=== PATIENT | male | born 1945 | race Caucasian/White ===

== ENCOUNTER 2016-03-25 12:29 | Inpatient (IN) ==
[2016-03-23 14:28] LABS: Basophils # (Auto) 0.1 K/mcL (0.0-0.3); Basophils % (Auto) 0.9 % (0.0-2.0); Eosinophils # (Auto) 0.1 K/mcL (0.0-0.7); Eosinophils % (Auto) 1.8 % (0.0-7.0); Granulocytes % (Auto) 71.1 % (38.0-78.0); Lymphocytes # (Auto) 1.5 K/mcL (1.5-4.8); Lymphocytes % (Auto) 19.1 % (15.5-49.0); Mean Cell Volume 96.5 fL (80.0-100.0); Mean Corpuscular HGB Conc 34.3 g/dL (31.0-36.0); Mean Corpuscular Hemoglobin 33.1 pg (26.0-34.0); Monocytes # (Auto) 0.6 K/mcL (0.1-0.9); Monocytes % (Auto) 7.1 % (1.0-9.0); Platelet Count 276 K/mcL (140-440); RBC 4.18 M/mcL (4.50-5.90); Red Cell Distribution Width 13.2 % (11.5-14.5)
[2016-03-23 14:53] LABS: Appearance,Urine CLEAR; Bilirubin,Urine NEG (NEG); Color,Urine STRAW; Glucose,Urine (UA) NEGATIVE (NEG); Leukocyte Esterase,Urine NEG /uL (NEG); Nitrate,Urine NEG (NEG); Protein,Urine NEG (NEG); Specific Gravity,Urine 1.009 (1.000-1.035); Urine Blood NEG mg/dL (<0.03); Urobilinogen,Urine NEG (NEG)
[2016-03-23 14:54] LABS: Blood Urea Nitrogen 27 mg/dl (8-23)
[~2016-03-25 12:29] MED LIST: CELECOXIB 200 MG CAPSULE PO SCH; KETOROLAC 30 MG, ROPIVACAINE HCL/PF 49.5 ML, EPINEPHrine 0.5 MG, 0.9 % SODIUM CHLORIDE ... IJ SCH; PREGABALIN 150 MG CAPSULE PO SCH; ceFAZolin 1 GM VIAL IV SCH; oxyCODONE 10 MG TAB.ER.12H PO SCH
[2016-03-25] MEDS ORDERED: DEXAMETHASONE 10 MG/ML VIAL IV ONE (14:40)
[2016-03-25] MEDS ORDERED: MIDAZOLAM 5 MG/5 ML VIAL IV ONE (14:40)
[2016-03-25] MEDS ORDERED: PROPOFOL 200 MG/20 ML VIAL IV ONE (14:40)
[2016-03-25] MEDS ORDERED: LIDOCAINE HCL/PF 100 MG/5 ML SYRINGE IV ONE (14:40)
[2016-03-25] MEDS ORDERED: ROPIVACAINE HCL/PF 30 ML VIAL IJ ONE (14:40)
[2016-03-25] MEDS ORDERED: PHENYLEPHRINE 10 MG/ML VIAL IV ONE (14:40)
[2016-03-25] MEDS ORDERED: ePHEDrine 50 MG/ML AMPUL IV ONE (14:40)
[2016-03-25] MEDS ORDERED: ONDANSETRON 4 MG/2 ML VIAL IV ONE (14:40)
[2016-03-25] MEDS ORDERED: GENTAMICIN SULFATE 800 MG/20 ML VIAL IR ONE (15:40)
[2016-03-25] MEDS ORDERED: HYDROmorphone 2 MG/ML SYRINGE IV PRN ×2 (16:18→16:47)
[2016-03-25] MEDS ORDERED: IPRATROPIUM/ALBUTEROL 3 ML AMPUL.NEB NEB PRN (16:18)
[2016-03-25] MEDS ORDERED: FLUMAZENIL 0.1 MG/ML ML IV PRN (16:18)
[2016-03-25] MEDS ORDERED: ePHEDrine 50 MG/ML AMPUL IV PRN (16:18)
[2016-03-25] MEDS ORDERED: MEPERIDINE 25 MG/ML SYRINGE IV PRN (16:18)
[2016-03-25] MEDS ORDERED: ONDANSETRON 4 MG/2 ML VIAL IV PRN ×2 (16:18→16:47)
[2016-03-25] MEDS ORDERED: BENZOCAINE/MENTHOL 1 LOZENGE PO PRN ×2 (16:18→16:47)
[2016-03-25] MEDS ORDERED: NALOXONE HCL 0.4 MG/ML VIAL IV PRN (16:18)
[2016-03-25] MEDS ORDERED: diphenhydrAMINE 50 MG/ML VIAL IV PRN (16:18)
[2016-03-25] MEDS ORDERED: METHOCARBAMOL 1,000 MG/10 ML VIAL IV PRN (16:18)
[2016-03-25] MEDS ORDERED: fentaNYL 100 MCG/2 ML VIAL IV PRN (16:18)
[2016-03-25] MEDS ORDERED: METOPROLOL TARTRATE 5 MG/5 ML VIAL IV PRN (16:18)
[2016-03-25] MEDS ORDERED: ATROPINE SULFATE 0.4 MG/ML VIAL IV PRN (16:18)
[2016-03-25] MEDS ORDERED: LACTATED RINGERS 1,000 ML IV SCH (16:30)
--- NOTE | 2016-03-25 16:46 | Brief Operative Note ---
Date of procedure: 03/25/16 Pre-op diagnosis: left knee oa Post-op diagnosis: same Procedure: left total knee arthroplasty Grafts/Implants: Yes Anesthesia: spinal Complications: none Surgeon: Estevan Pichardo Press Tender Smoke Signal: Jeffery Ruth Estimated blood loss (cc): 150 Tourniquet Time (Minutes): 83 Specimens Removed/Pathology: none sent Condition: stable Disposition: PACU
[2016-03-25] MEDS ORDERED: POLYETHYLENE GLYCOL 3350 17 GM PACKET PO PRN (16:47)
[2016-03-25] MEDS ORDERED: BISACODYL 10 MG SUPP.RECT PR PRN (16:47)
[2016-03-25] MEDS ORDERED: TRANEXAMIC ACID 1,000 MG/10 ML VIAL IV ONE (16:47)
[2016-03-25] MEDS ORDERED: FLEETS ADULT ENEMA PR PRN (16:47)
[2016-03-25] MEDS ORDERED: MAGNESIUM HYDROXIDE 30 ML ORAL.SUSP PO PRN (16:47)
[2016-03-25] MEDS ORDERED: PROMETHAZINE 25 MG/ML VIAL IM PRN (16:47)
[2016-03-25] MEDS ORDERED: METHOCARBAMOL 750 MG TABLET PO PRN (16:47)
[2016-03-25] MEDS ORDERED: ONDANSETRON ODT 4 MG TABLET SL PRN (16:47)
--- NOTE | 2016-03-25 17:21 | Operative Note ---
DATE OF OPERATION: 03/25/2016 PREOPERATIVE DIAGNOSIS: Degenerative joint disease, left knee. POSTOPERATIVE DIAGNOSIS: Degenerative joint disease, left knee. PROCEDURE: Left total knee arthroplasty. SURGEON: Ilda Pichardo M.D. JAWBONE PULLER SURGEON: Jeffery Ruth PA-C. ANESTHESIA: Spinal with LMA assist. ESTIMATED BLOOD LOSS: 150 mL. COMPLICATIONS: None noted. SPECIMENS REMOVED: None. DRAINS: None. TOURNIQUET TIME: 1 hour and 23 minutes at 250 mmHg. IMPLANTS: DePuy CMW2 bone cement 20 grams x5; DePuy Attune femoral posterior stabilized size 8 left cemented; DePuy Attune tibial insert fixed bearing posterior stabilized size 8, 6 mm AOX; DePuy Attune tibial base fixed bearing size 7 cemented; DePuy Attune patella medialized dome 38 mm cemented AOX. INDICATIONS: The patient has had a long-standing history of worsening pain in the knee that has failed conservative treatment. Radiographs have confirmed advanced degenerative joint disease. After a long discussion about treatment options, the patient elected to proceed with a knee arthroplasty. The risks and benefits were discussed with the patient in detail including, but not limited to, the risks of anesthesia, problems with the heart or lungs related to anesthesia, infection, compromise or injury to the nerves and blood vessels, deep venous thrombosis, pulmonary embolism, pneumonia, continued pain after surgery, worsening pain or symptoms after surgery, swelling, loss of motion, instability, leg length discrepancy, and need for repeat surgery. DESCRIPTION OF PROCEDURE: The patient was seen in the pre-anesthesia waiting room where all questions were answered and the correct side and site were identified and marked. The patient was transferred to the operating room and administered the anesthetic and given pre-operative antibiotics. A time-out was then called. The extremity was prepped and draped, exsanguinated, and the tourniquet was inflated to 300 mmHg. A midline skin incision was then made with a standard medial parapatellar arthrotomy. Debridement of the menisci, ACL, and PCL was performed followed by balancing releases in the medial lateral plane. We then established intramedullary access to both the femur and tibia in a standard fashion. The femoral guide ale was initially placed with the distal femoral guide, pinned into place, and the distal femoral cut was performed and checked with a flat plate. We then turned our attention to the tibia. The intramedullary guide was placed with the proximal tibial cutting block. The block was appropriately positioned off the affected side, varus and valgus was checked with the extra-medullary guide, and the block was pinned into place. The proximal tibial cut was performed and the tibia was prepared for the tibial implant with appropriate rotation. The tibia, femur, and posterior compartment were debrided of osteophytes, loose bodies, and meniscal fragments We then used the gap balancing technique to balance extension with the first two cuts and good balancing was obtained with a 10 millimeter gap block. We turned our attention back to the femur and used the referencing block and implant to size appropriately. Using the gap balancing technique for the flexion space we set our rotation of the femur off the tibial cut. Anesthesia gave the patient 1 gram of Tranexamic Acid via an intravenous route. We placed the 4 in 1 cutting block and made anterior, posterior, and chamfer cuts. Box plasty cuts were then made in a standard fashion for the posterior stabilized prosthesis. We then completed osteophyte release and posterior capsule release from the posterior compartment. Trials were placed and we chose the polyethylene insert thickness that provided the best stability in all planes. With the trials in place, we did a measured resection for a resurfacing patella. We sized the patella and placed the patella trial and performed a lateral facetectomy with the saw and rongeur. Good tracking was obtained. We removed all trials, irrigated and dried all cut surfaces. We cemented the components into place including tibia, femur and patella. We placed a trial liner and held the knee in full extension with the patella compressed while the cement cured. We then removed all excess cement and placed the final polyethylene tibiofemoral component. Irrigation with 3 liters of antibiotic saline was then performed using jet-lavage. We let the tourniquet down and coagulated bleeding vessels. We injected a 100 cubic centimeter volume including Ropivacaine 49.25 cubic centimeters at 5 milligrams per cubic centimeter, Ketorolac 30 milligrams, and Epinephrine 0.5 milligrams into 100 cubic centimeters volume of normal saline. We placed a deep drain and closed the retinaculum with looped #0 Maxon. We closed the subcutaneous tissue and skin in layers out to jocelyn in the skin. A sterile pressure dressing was applied. All needle and sponge counts were correct. The patient was transferred to the recovery room in stable condition. BJORN:[email or web address] Job ID: [id number] Doc ID: [id number] Ilda Pichardo MD
--- NOTE | 2016-03-25 17:40 | XRay Report ---
CLINICAL INFORMATION: Total knee prostheses COMPARISON: None. FINDINGS: Total knee prostheses is anatomically aligned. There is no osseous abnormality. Soft tissue swelling seen as expected IMPRESSION: Negative Interpreted and Authenticated by: Estevan Egan 03/25/16
[2016-03-25] MEDS: DOCUSATE SODIUM 100 MG CAPSULE PO SCH (19:24)
[2016-03-25] MEDS: KETOROLAC 15 MG/ML VIAL IV SCH (19:24)
[2016-03-25] MEDS: SENNOSIDES 1 TABLET PO SCH (19:25)
[2016-03-25] MEDS: ASPIRIN 325 MG ENTERIC COATED TABLET PO SCH (19:25)
[2016-03-25] MEDS: BISACODYL 5 MG TABLET PO SCH (19:25)
[2016-03-25] MEDS: 0.9 % SODIUM CHLORIDE 1,000 ML IV SCH (19:25)
[2016-03-25] MEDS: ATORVASTATIN 20 MG TABLET PO SCH (19:25)
[2016-03-25] MEDS: HYDROcodone/APAP 10/325MG TABLET PO PRN (21:59)
[2016-03-25] MEDS: ceFAZolin 1 GM VIAL IV SCH (23:16)
[2016-03-25] MEDS: 0.9 % SODIUM CHLORIDE 10 ML SYRINGE IV SCH (23:17)
[2016-03-26] MEDS: KETOROLAC 15 MG/ML VIAL IV SCH ×4 (02:15→17:48)
[2016-03-26] MEDS: 0.9 % SODIUM CHLORIDE 1,000 ML IV SCH ×4 (02:15→15:55)
[2016-03-26] MEDS: LISINOPRIL 20 MG TABLET PO SCH ×3 (02:15→22:34)
[2016-03-26] MEDS: TAMSULOSIN 0.4 MG CAPSULE PO SCH ×2 (05:13→09:04)
[2016-03-26] MEDS: 0.9 % SODIUM CHLORIDE 10 ML SYRINGE IV SCH ×3 (06:45→22:34)
[2016-03-26] MEDS: ceFAZolin 1 GM VIAL IV SCH (07:14)
[2016-03-26] MEDS ORDERED: PANTOPRAZOLE 40 MG TABLET PO SCH (07:30)
--- NOTE | 2016-03-26 07:45 | Orthopedic Progress Note ---
Subjective Patient information: Note initiated : 03/26/16 at 7:43 am Service Date, if different from initiated Date: [] Patient: Marcello Sheppard 71 y/o M admitted on 03/25/16 for Left Total Knee Arthroplast. Chief Complaint: [] Principal diagnosis: Left Total knee arthroplasty Interval history: Doing well today. Hasn't urinated yet but pain under control. Going to keep him today and work in PT on motion and gait. Anticipate DC home tomorrow. Denies calf pain, chest pain, SOB Objective Vital signs: Vital Signs Temp Pulse Pulse Resp BP BP Pulse Ox 03/26/16 07:35 97.8 F 72 20 127/91 95 03/26/16 03:19 97.3 F L 72 20 119/67 96 03/26/16 00:00 97.2 F L 79 20 112/70 95 03/25/16 22:00 97 03/25/16 21:00 97.2 F L 59 L 16 102/67 97 03/25/16 20:00 80 118/74 96 03/25/16 19:30 84 112/67 97 03/25/16 19:00 69 117/75 97 03/25/16 18:45 87 118/78 98 03/25/16 18:40 94 03/25/16 18:30 73 127/79 96 03/25/16 18:15 76 113/74 97 03/25/16 17:55 97.2 F L 82 17 127/87 97 03/25/16 17:40 97.0 F L 79 17 127/72 97 03/25/16 17:25 86 18 142/80 97 03/25/16 17:10 97.8 F 89 14 151/77 98 03/25/16 13:05 98.0 F 62 16 125/81 98 Intake and Output 03/25/16 03/26/16 03/26/16 21:59 05:59 13:59 Intake Total 2200 / 2200 2708 / 2708 Output Total 400 / 400 400 / 400 Balance 1800 / 1800 2308 / 2308 Intake: IV 2200 / 2200 908 / 908 Sodium Chloride 0.9% 1, 908 / 908 000 ml @ 125 mls/hr IV . Q8H [facility] Rx#:[id number] Oral 1800 / 1800 Output: Urine Catheter Amount 300 / 300 Void Amount 400 / 400 Straight 400 / 400 Estimated Blood Loss 100 / 100 Other: Meal sandwich, broth Percent of Meal Consumed 100% Feeding Ability Independent Weight 190 lb Intake & Output: Intake & Output 03/25/16 03/26/16 03/26/16 21:59 05:59 13:59 Intake Total 2200 / 2200 2708 / 2708 Output Total 400 / 400 400 / 400 Balance 1800 / 1800 2308 / 2308 Weight 190 lb Intake: IV 2200 / 2200 908 / 908 Sodium Chloride 0.9% 1, 908 / 908 000 ml @ 125 mls/hr IV . Q8H [facility] Rx#:[id number] Oral 1800 / 1800 Output: Urine Catheter Amount 300 / 300 Void Amount 400 / 400 Straight 400 / 400 Estimated Blood Loss 100 / 100 Other: Meal sandwich, broth Percent of Meal Consumed 100% Feeding Ability Independent Incision: Yes clean and dry Incision clean and dry: Yes Dressing: Yes clean, Yes dry, Yes intact Weight bearing status: as tolerated Neurological exam IM: Yes alert, Yes oriented X3, Yes motor sensory intact, Yes neurovascular intact Extremities exam IM: Yes normal capillary refill, Yes normal inspection Additional Comments: No calf tenderness, negative tom - Periperhal Pulses Peripheral pulses: 2+: dorsalis pedis (L), dorsalis pedis (R), posterior tibialis (L), posterior tibialis (R) - Labs CBC & BMP: 03/23/16 12:57 03/23/16 12:57 Labs: Orthopedic Labs 03/23/16 12:57 PT 14.0 INR 1.1 03/26/16 03/23/16 06:45 12:57 Hgb Pending 13.9 Hct Pending 40.4 L Assessment and Plan (1) S/P total knee arthroplasty A: PO day 1 s/p left total knee arthroplasty P: WBAT PT DVT prophylaxis anticipate dc home tomorrow Status: Acute Qualifiers: Laterality: left Qualified Code(s): Z96.652 - Presence of left artificial knee joint
[2016-03-26] MEDS: ASPIRIN 325 MG ENTERIC COATED TABLET PO SCH ×2 (08:19→21:07)
[2016-03-26] MEDS: DOCUSATE SODIUM 100 MG CAPSULE PO SCH ×2 (08:19→21:07)
[2016-03-26] MEDS: HYDROCHLOROTHIAZIDE 12.5 MG CAPSULE PO SCH (08:19)
[2016-03-26] MEDS: HYDROcodone/APAP 10/325MG TABLET PO PRN ×3 (08:20→22:21)
[2016-03-26] MEDS: VIT A,C & E/LUTEIN/MINERALS TABLET PO SCH (09:08)
[2016-03-26] MEDS: PANTOPRAZOLE 40 MG TABLET PO SCH (16:19)
[2016-03-26] MEDS: BISACODYL 5 MG TABLET PO SCH (21:06)
[2016-03-26] MEDS: SENNOSIDES 1 TABLET PO SCH (21:06)
[2016-03-26] MEDS: ATORVASTATIN 20 MG TABLET PO SCH (21:07)
[2016-03-27] MEDS: KETOROLAC 15 MG/ML VIAL IV SCH ×2 (01:31→06:54)
[2016-03-27] MEDS: 0.9 % SODIUM CHLORIDE 1,000 ML IV SCH ×2 (02:06→09:16)
--- NOTE | 2016-03-27 06:36 | Orthopedic Progress Note ---
Subjective Patient information: Note initiated : 03/27/16 at 6:34 am Service Date, if different from initiated Date: [] Patient: Marcello Sheppard 71 y/o M admitted on 03/25/16 for Left Total Knee Arthroplast. Chief Complaint: [] Principal diagnosis: Left Total knee arthroplasty Interval history: doing well. no complaints, feels like he is ready to go home Objective Vital signs: Vital Signs Temp Pulse Resp BP Pulse Ox 03/27/16 04:00 97.5 F L 89 18 109/66 95 03/27/16 00:00 98.1 F 66 18 104/66 97 03/26/16 20:00 97.9 F 72 18 116/72 98 03/26/16 16:26 97.7 F 76 16 114/72 99 03/26/16 11:57 98.3 F 76 18 106/68 98 03/26/16 07:52 98 03/26/16 07:35 97.8 F 72 20 127/91 95 Intake and Output 03/26/16 03/27/16 03/27/16 21:59 05:59 13:59 Intake Total 420 / 420 150 / 150 Output Total 500 / 500 300 / 300 Balance -80 / -80 -150 / -150 Intake: Oral 420 / 420 150 / 150 Output: Void Amount 500 / 500 300 / 300 Other: Meal Dinner Percent of Meal Consumed 75% Weight 191 lb Intake & Output: Intake & Output 03/26/16 03/27/16 03/27/16 21:59 05:59 13:59 Intake Total 420 / 420 150 / 150 Output Total 500 / 500 300 / 300 Balance -80 / -80 -150 / -150 Weight 191 lb Intake: Oral 420 / 420 150 / 150 Output: Void Amount 500 / 500 300 / 300 Other: Meal Dinner Percent of Meal Consumed 75% Incision: Yes clean and dry Incision clean and dry: Yes Dressing: Yes clean, Yes dry, Yes intact Weight bearing status: full Neurological exam IM: Yes alert, Yes oriented X3, Yes motor sensory intact, Yes neurovascular intact Extremities exam IM: No calf tenderness, Yes Foot pink and warm, Yes neurovascular intact - Labs CBC & BMP: 03/26/16 06:45 03/23/16 12:57 Labs: Orthopedic Labs 03/23/16 12:57 PT 14.0 INR 1.1 03/27/16 03/26/16 03/23/16 05:58 06:45 12:57 Hgb Pending 10.8 L 13.9 Hct Pending 33.4 L 40.4 L Assessment and Plan (1) S/P total knee arthroplasty pod 2 s/p tka wbat pain control dvt prophylaxis d/c planning - home today if passes pt Status: Acute Qualifiers: Laterality: left Qualified Code(s): Z96.652 - Presence of left artificial knee joint
--- NOTE | 2016-03-27 06:37 | Discharge Summary ---
Ortho Discharge - TKA - Patient Instructions Diet: Regular Diet Activity: ambulate with assistive device, weight bearing as tolerated Total Knee Protocol: For Total Knee: Start ROM JENNIFER with stationary bike or rocking chair. Work on gaining full extension of knee. Posterior dislocation precautions provided. Hip abductor strengthening and gait training instructions provided. Apply Cryocuff as instructed. Dressing Care: May shower in 2 days - Problem Maintenance (1) S/P total knee arthroplasty Status: Acute Qualifiers: Laterality: left Qualified Code(s): Z96.652 - Presence of left artificial knee joint - Follow Up Plan Disposition: Home, Self-Care Prognosis: Good Rehab Potential: Good I certify that the patient requires SNF services: No Overall status at discharge: patient is progressing back to baseline
[2016-03-27] MEDS: 0.9 % SODIUM CHLORIDE 10 ML SYRINGE IV SCH (06:54)
[2016-03-27] MEDS: PANTOPRAZOLE 40 MG TABLET PO SCH (06:57)
[2016-03-27] MEDS: DOCUSATE SODIUM 100 MG CAPSULE PO SCH (09:13)
[2016-03-27] MEDS: ASPIRIN 325 MG ENTERIC COATED TABLET PO SCH (09:13)
[2016-03-27] MEDS: TAMSULOSIN 0.4 MG CAPSULE PO SCH (09:13)
[2016-03-27] MEDS: VIT A,C & E/LUTEIN/MINERALS TABLET PO SCH (09:13)
[2016-03-27] MEDS: HYDROCHLOROTHIAZIDE 12.5 MG CAPSULE PO SCH (09:14)
[2016-03-27] MEDS: LISINOPRIL 20 MG TABLET PO SCH (09:14)
== END 2016-03-27 10:10 | disposition home or self-care (01) | DRG 470 ==
LOC: MEDSUR 12:29
PROVIDERS: ADMIT Orthopaedic Surgery Sports Medicine; ATTEND Orthopaedic Surgery Sports Medicine